=== PATIENT | male | born 1985 | race Caucasian/White ===

== ENCOUNTER 2022-05-19 09:58 | Emergency (ER) | payer BC ==
[2022-05-19] MEDS ORDERED: Hydromorphone 1 mg/ml Injection IV ONE (10:21)
[2022-05-19] MEDS ORDERED: Sodium Chloride 0.9% 1000 ML 1,000 ML IV STA (10:21)
[2022-05-19] MEDS ORDERED: Zofran 4 MG/2 ML VIAL IV ONE (10:21)
[2022-05-19] MEDS ORDERED: Hydromorphone 1 mg/ml Injection ONE (10:54)
[2022-05-19] MEDS ORDERED: Sodium Chloride 0.9% 1000 ML 1,000 ML ONE (10:54)
[2022-05-19] MEDS ORDERED: Zofran 4 MG/2 ML VIAL ONE (10:54)
[2022-05-19 11:01] LABS: Absolute Neutrophil Ct (ANC) 9.47 x10^3/uL (1.4-6.9); Basophil (Absolute #) 0.02 x10^3/uL (0-0.4); Eosinophil % 0.5 % (0.00-5.0); Eosinophil (Absolute #) 0.05 x10^3/uL (0-0.5); Hematocrit 49.5 % (42-50); Hemoglobin 17.1 g/dL (12.5-18.0); Lymphocyte (Absolute #) 0.66 x10^3/uL (1.0-4.6); Mean Cell Volume 91.3 fL (78-100); Mean Corpuscular Hemoglobin 31.5 pg (26-32); Mean Corpuscular Hgb Concent. 34.5 g/dL (32-36); Monocytes % 6.4 % (0.0-12.0); Neutrophil % 86.7 % (36.0-66.0); Platelet Count 190 x10^3/uL (150-450); Red Blood Count 5.42 x10^6/uL (4.1-5.6); Red Cell Distribution Width 12.1 % (11.5-14.0); White Blood Count 10.9 x10^3/uL (4.0-10.5)
[2022-05-19 11:37] LABS: ALBUMIN 4.2 g/dL (3.5-5.0); ALKALINE PHOSPHATASE 84 U/L (38-126); ANION GAP 14.1 MEQ/L (5-15); BLOOD UREA NITROGEN 14 mg/dL (9-20); CHLORIDE 104 mmol/L (98-107); Calcium 9.4 mg/dL (8.4-10.2); Carbon Dioxide 24 mmol/L (22-30); EST GLOMERULAR FILTRATION RATE > 60.0 ML/MIN; Glucose 105 mg/dL (74-106); SGOT/AST 45 U/L (17-59); SGPT/ALT 102 U/L (0-50); SODIUM 139 mmol/L (137-145); Total Protein 7.1 g/dL (6.3-8.2)
--- NOTE | 2022-05-19 11:55 | XRAY ---
Indication: "Abscess" between rectum and right scrotum for 7 years. Multiple contiguous axial images obtained through the pelvis without contrast. Comparison: None Posterior scrotum demonstrates midline wall thickening without focal walled off fluid collection or subcutaneous emphysema. No pathologic pelvic or inguinal lymphadenopathy. Visualized bowel loops nonobstructed with normal appendix. No free fluid/air. Remaining visualized urinary bladder, artery/veins, and osseous structures unremarkable. Impression: Nonspecific posterior scrotum wall thickening. Remaining CT pelvis without contrast exam is negative.
[2022-05-19] MEDS ORDERED: CLINDAMYCIN-D5W 900 MG/50 ML*** 900 MG/50 ML BAG IV STA (12:24)
[2022-05-19] MEDS ORDERED: CLINDAMYCIN-D5W 900 MG/50 ML*** 900 MG/50 ML BAG IV ONE (12:26)
--- NOTE | 2022-05-19 12:58 | ERPHSYRPT ---
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 Patient reports sharp shooting/stabbing severe pain radiation to perirectal area. No fever or chills reported. Denies any testicular pain. Timing/Duration: day(s) (2), gradual onset, worse Activites at Onset: rest Quality: sharpness, stabbing Onset Location: scrotal Severity of Pain-Max: severe Severity of Pain-Current: severe Modifying Factors: Worsens With: movement, palpation Associated Symptoms: swelling Prior abdominal problems: none Sexual intercourse history: non-contributory Allergies/Adverse Reactions: Sulfa (Sulfonamide Antibiotics) Allergy (Verified 05/19/22 10:17) Hx Tetanus, Diphtheria Vaccination/Date Given: No Hx Influenza Vaccination/Date Given: No Hx Pneumococcal Vaccination/Date Given: No Immunizations Up to Date: Yes Travel Risk - International Travel Have you traveled outside of the country in past 3 weeks: No - Coronavirus Screening Are you exhibiting any of the following symptoms?: No - Vaccine Status Have you recieved a Covid-19 vaccination: No - Past Surgical History Past Surgical History: Yes Other Surgical History: abscess - Social History Smoking Status: Never smoker Exposure to second hand smoke: No Drug Use: none Patient Lives Alone: No - Review of Systems Constitutional: No Symptoms Ears, Nose, & Throat: No Symptoms Respiratory: No Symptoms Cardiac: No Symptoms Abdominal/Gastrointestinal: No Symptoms Genitourinary Symptoms: No Frequency, No Urinary Retention Musculoskeletal: No Symptoms Skin: No Symptoms Neurological: No Symptoms Psychological: No Symptoms Endocrine: No Symptoms Hematologic/Lymphatic: No Symptoms Immunological/Allergic: No Symptoms - Nursing Vital Signs Nursing Vital Signs: Initial Vital Signs Temperature 98.8 F 05/19/22 10:06 Pulse Rate 98 H 05/19/22 10:06 Respiratory Rate 18 05/19/22 10:06 Blood Pressure 156/114 05/19/22 10:06 O2 Sat by Pulse Oximetry 98 05/19/22 10:06 Pain Scale Pain Intensity 5 - Physical Exam General Appearance: no apparent distress, alert Eye Exam: PERRL/EOMI Ears, Nose, Throat Exam: normal ENT inspection Neck Exam: normal inspection, full range of motion Respiratory Exam: normal breath sounds, lungs clear Cardiovascular Exam: regular rate/rhythm, normal heart sounds Gastrointestinal/Abdomen Exam: soft, normal bowel sounds, No tenderness Rectal Exam: deferred Male Genital Exam: normal genitalia, scrotum tenderness (R), scrotum tenderness (L) (Posterior scrotum 2 x 3 cm closer to cranium area of induration, tenderness with no fluctuation. No perirectal area swelling), circumcised, No epididymal tenderness Back Exam: normal inspection Extremity Exam: normal inspection, normal range of motion Neurologic Exam: alert, oriented x 3, cooperative Skin Exam: normal color SpO2 Interpretation: normal SpO2: 95 O2 Delivery: Room Air Ordered Tests: Medication Summary Discontinued Medications Generic Name Dose Route Start Last Admin Trade Name Pedro PRN Reason Stop Dose Admin Hydromorphone HCl 1 mg 05/19/22 10:21 05/19/22 10:55 Hydromorphone 1 Mg/1ml Inj 1 Mg/Ml Syringe IV 05/19/22 10:22 1 mg STAT ONE Administration Hydromorphone HCl Confirm 05/19/22 10:54 Hydromorphone 1 Mg/1ml Inj 1 Mg/Ml Syringe Administered 05/19/22 10:55 Dose 1 mg .ROUTE .STK-MED ONE Sodium Chloride 1,000 mls @ 999 mls/hr 05/19/22 10:21 05/19/22 12:25 Sodium Chloride 0.9% 1000 Ml IV 05/19/22 11:21 Infused .Q1H1M STA Infusion Sodium Chloride Confirm 05/19/22 10:54 Sodium Chloride 0.9% 1000 Ml Administered 05/19/22 10:55 Dose 1,000 mls @ ud .ROUTE .STK-MED ONE Clindamycin HCl/Dextrose 900 mg in 50 mls @ 100 mls/hr 05/19/22 12:24 05/19/22 13:08 Clindamycin-D5w 900 Mg/50 Ml IV 05/19/22 12:53 Infused STAT STA Infusion Clindamycin HCl/Dextrose Confirm 05/19/22 12:26 Clindamycin-D5w 900 Mg/50 Ml Administered 05/19/22 12:27 Dose 900 mg in 50 mls @ ud IV .STK-MED ONE Ondansetron HCl 4 mg 05/19/22 10:21 05/19/22 10:55 Ondansetron Hcl 4 Mg/2 Ml Vial IV 05/19/22 10:22 4 mg STAT ONE Administration Ondansetron HCl Confirm 05/19/22 10:54 Ondansetron Hcl 4 Mg/2 Ml Vial Administered 05/19/22 10:55 Dose 4 mg .ROUTE .STK-MED ONE Lab/Rad Data: Laboratory Result Diagrams 05/19/22 10:45 05/19/22 10:45 Laboratory Results 05/19/22 05/19/22 05/19/22 Range/Units 10:45 10:45 10:21 WBC 10.9 H (4.0-10.5) x10^3/uL RBC 5.42 (4.1-5.6) x10^6/uL Hgb 17.1 (12.5-18.0) g/dL Hct 49.5 (42-50) % MCV 91.3 (78-100) fL MCH 31.5 (26-32) pg MCHC 34.5 (32-36) g/dL RDW 12.1 (11.5-14.0) % Plt Count 190 (150-450) x10^3/uL MPV 11.0 (7.5-11.0) fL Gran % 86.7 H (36.0-66.0) % Immature Gran % (Auto) 0.2 (0.00-0.4) % Nucleat RBC Rel Count 0.0 (0.00-0.1) % Eos # (Auto) 0.05 (0-0.5) x10^3/uL Immature Gran # (Auto) 0.02 (0.00-0.03) x10^3u/L Absolute Lymphs (auto) 0.66 L (1.0-4.6) x10^3/uL Absolute Monos (auto) 0.70 (0.0-1.3) x10^3/uL Absolute Nucleated RBC 0.00 (0.00-0.01) x10^3u/L Lymphocytes % 6.0 L (24.0-44.0) % Monocytes % 6.4 (0.0-12.0) % Eosinophils % 0.5 (0.00-5.0) % Basophils % 0.2 (0.0-0.4) % Absolute Granulocytes 9.47 H (1.4-6.9) x10^3/uL Basophils # 0.02 (0-0.4) x10^3/uL Sodium 139 (137-145) mmol/L Potassium 4.0 (3.5-5.1) mmol/L Chloride 104 (98-107) mmol/L Carbon Dioxide 24 (22-30) mmol/L Anion Gap 14.1 (5-15) MEQ/L BUN 14 (9-20) mg/dL Creatinine 1.00 (0.66-1.25) mg/dL Estimated GFR > 60.0 ML/MIN Glucose 105 (74-106) mg/dL Lactic Acid 1.2 (0.4-2.0) Calcium 9.4 (8.4-10.2) mg/dL Total Bilirubin 1.30 (0.2-1.3) mg/dL AST 45 (17-59) U/L ALT 102 H (0-50) U/L Alkaline Phosphatase 84 (38-126) U/L Serum Total Protein 7.1 (6.3-8.2) g/dL Albumin 4.2 (3.5-5.0) g/dL - Progress Progress: improved, pain not gone completely Progress Note: 05/19/22 12:55 Is given pain medication for symptomatic relief. Has a white count of 10.9, grossly unremarkable chemistries. No UTI. Obtain CT pelvis which showed posterior scrotal swelling but no definitive abscess or any signs symptoms suggesting Stephanie's gangrene. Given clindamycin in ER. I have tried to have him follow-up with his primary care but office is closed tomorrow. Area is encircled and recommended ER follow-up tomorrow for reevaluation to see if it needs I&D. Also discussed signs symptoms of worsening needing return to ER which he seems understanding. Stable for discharge Counseled pt/family regarding: lab results, diagnosis, need for follow-up, rad results - Departure Departure Disposition: Home Clinical Impression: Cellulitis of scrotum Condition: Stable Critical Care Time: No Referrals: ERICA SPANGLER [Primary Care Provider] - Follow Up with PCP/3 days Instructions: MRSA (DC) Additional Instructions: Return to ER for reevaluation tomorrow. Return our ER if having increased swelling with excruciating pain, fever or chills or difficulty urination etc. Take pain medications as needed. Use warm compresses/sitz bath. Prescriptions: clindamycin HCL [Clindamycin HCl] 300 mg PO QID 7 Days #28 cap Oxycodone HCl/Acetaminophen [Oxycodone-Acetaminophn 7.5-325] 1 each PO Q6H PRN 3 Days #12 tablet MDD 4 PRN Reason: Pain
[2022-05-19 13:13] VITALS: BP 149/104; PULSE 88
[2022-05-22 19:16] VITALS: O2SAT 95
== END 2022-05-19 13:21 | disposition home or self-care (01) ==
LOC: ED 09:58
DX: N49.2 Inflammatory disorders of scrotum (principal); N50.82 Scrotal pain; Z79.891 Long term (current) use of opiate analgesic; Z28.310 Unvaccinated for COVID-19
CPT/HCPCS: 36415; 72192; 80053; 83605; 85025; 87070; 96365; 96374; 96375; 99284; J1170; J2405

== ENCOUNTER 2022-05-20 09:59 | Emergency (ER) | payer BC ==
--- NOTE | 2022-05-20 10:04 | ERPHSYRPT ---
- History of Present Illness Time Seen by Provider: 05/20/22 10:04 Source: patient Exam Limitations: no limitations Physician History: This is a 36-year-old white male who was seen here on 05/19/2022 with a scrotal mass/? Abscess. A CAT scan was performed on 05/19/2022 and there is no evidence of any Stephanie's gangrene or abscess. However there was an area of induration and tenderness present. Patient has no history of diabetes. Patient has had at least 10 episodes of recurrent abscesses present. Patient was placed on oxycodone and clindamycin. Patient had a white count yesterday of 10.9. He has been afebrile. Today, he feels as though the area is more tender and slightly increased in size. Patient was instructed to follow-up in the emergency department today for reevaluation. His PCP is out of the office. Timing/Duration: day(s) (2) Quality: burning, painful Severity: mild (Moderate) Location: other (Scrotal) Possible Causes: other (Sebaceous cyst) Associated Symptoms: denies symptoms Allergies/Adverse Reactions: Sulfa (Sulfonamide Antibiotics) Allergy (Verified 05/19/22 10:17) Hx Tetanus, Diphtheria Vaccination/Date Given: No Hx Influenza Vaccination/Date Given: No Hx Pneumococcal Vaccination/Date Given: No Travel Risk - International Travel Have you traveled outside of the country in past 3 weeks: No - Coronavirus Screening Are you exhibiting any of the following symptoms?: No Close contact with a COVID-19 positive Pt in past 14-21 Days: No - Vaccine Status Have you recieved a Covid-19 vaccination: No - Review of Systems Constitutional: No Symptoms Eyes: No Symptoms Ears, Nose, & Throat: No Symptoms Respiratory: No Symptoms Cardiac: No Symptoms Abdominal/Gastrointestinal: No Symptoms Genitourinary Symptoms: Other (Scrotal mass, tender) Musculoskeletal: No Symptoms Skin: Induration (Scrotal mass) Neurological: No Symptoms Psychological: No Symptoms Endocrine: No Symptoms Hematologic/Lymphatic: No Symptoms Immunological/Allergic: No Symptoms All Other Systems: Reviewed and Negative - Past Medical History Pertinent Past Medical History: No - Past Surgical History Past Surgical History: Yes Other Surgical History: abscess - Social History Smoking Status: Never smoker Exposure to second hand smoke: No Drug Use: none Patient Lives Alone: No - Nursing Vital Signs Nursing Vital Signs: Initial Vital Signs Temperature 99.0 F 05/20/22 10:05 Pulse Rate 104 H 05/20/22 10:05 Respiratory Rate 20 05/20/22 10:05 Blood Pressure 141/83 05/20/22 10:05 O2 Sat by Pulse Oximetry 98 05/20/22 10:05 Pain Scale Pain Intensity 6 - Physical Exam General Appearance: no apparent distress, alert, anxiety Eye Exam: PERRL/EOMI, eyes nml inspection Ears, Nose, Throat Exam: normal ENT inspection, moist mucous membranes Neck Exam: normal inspection, non-tender, supple, full range of motion Respiratory Exam: No chest tenderness, No respiratory distress, No airway intact Gastrointestinal/Abdomen Exam: No tenderness Male Genitalia Exam: other (Scrotal mass, tender,? Fluctuance) Rectal Exam: not done Back Exam: normal inspection, normal range of motion, No CVA tenderness Extremity Exam: normal inspection, normal range of motion, pelvis stable Neurologic Exam: alert, oriented x 3, cooperative, maintenance electrician II-XII nml as tested, normal mood/affect, nml cerebellar function, nml station & gait, sensation nml Skin Exam: normal color, warm, dry Lymphatic Exam: No adenopathy SpO2 Interpretation: normal O2 Delivery: Room Air Procedures - Incision and Drainage Time of Procedure: 10:30 Site: Scrotum Blade Size: 11 I & D Procedure: betadine prep Results: small amount pus Progress: Patient taught the procedure well. Hilary-pad was placed in the area. - Course Nursing assessment & vital signs reviewed: Yes Ordered Tests: Medication Summary Discontinued Medications Generic Name Dose Route Start Last Admin Trade Name Pedro PRN Reason Stop Dose Admin Doxycycline Hyclate 100 mg 05/20/22 10:35 Doxycycline Hyclate 100 Mg Tablet PO 05/20/22 10:36 STAT ONE Hydromorphone HCl 1 mg 05/20/22 10:35 Hydromorphone 1 Mg/1ml Inj 1 Mg/Ml Syringe IM 05/20/22 10:36 STAT ONE Ondansetron HCl 4 mg 05/20/22 10:36 Zofran 4 Mg/Udtablet Orally Disintegrating PO 05/20/22 10:37 STAT ONE - Progress Progress: unchanged Counseled pt/family regarding: diagnosis, need for follow-up - Departure Departure Disposition: Home Clinical Impression: Infected sebaceous cyst Condition: Stable Critical Care Time: No Referrals: ERICA SPANGLER [Primary Care Provider] - Follow up/PCP as directed Additional Instructions: Sitz bath with warm soapy water or warm Epson salt twice a day. Take your antibiotics as prescribed. If your symptoms worsen, proceed to either [facility] or [facility] in [facility] for evaluation by urologist. Keep your appointment with urology that is made for you. Cover the wound site with Maldonado pad as needed. Do not use ointments lotions or creams to the site. Prescriptions: Doxycycline Hyclate 100 mg [Vibramycin 100 MG] 100 mg PO BID #14 tab
[2022-05-20 10:11] VITALS: O2SAT 98
[2022-05-20] MEDS ORDERED: Vibramycin 100 MG PO ONE (10:35)
[2022-05-20] MEDS ORDERED: Hydromorphone 1 mg/ml Injection IM ONE (10:35)
[2022-05-20] MEDS ORDERED: ZOFRAN ODT 4 MG PO ONE (10:36)
[2022-05-20] MEDS ORDERED: ZOFRAN ODT 4 MG ONE (11:00)
[2022-05-20] MEDS ORDERED: Vibramycin 100 MG ONE (11:00)
[2022-05-20] MEDS ORDERED: Hydromorphone 1 mg/ml Injection ONE (11:01)
[2022-05-20 11:07] VITALS: BP 139/97; PULSE 90
== END 2022-05-20 11:50 | disposition home or self-care (01) ==
LOC: ED 09:59
DX: L72.3 Sebaceous cyst (principal); N50.82 Scrotal pain; Z28.310 Unvaccinated for COVID-19
CPT/HCPCS: 10060; 96372; 99284; J1170; Q0162; A9270-GY